=== PATIENT | male | born 1965 | race Caucasian/White ===

== ENCOUNTER 2019-07-03 07:12 | Outpatient (CLI) | payer OTHER, SELFPAY ==
[2019-07-03 07:20] VITALS: BMI 24.0
--- NOTE | 2019-07-03 07:25 | NMCV_ITS ---
NM raymond perf SPECT r/s* [id number] Christopher Vidales Age: 53 Gender: M : 1965 Exam Date: 07/03/2019 08:28 Ordering Phys: Miguel Dang MD ([email or web address]) Technologist: ALLIE Mitchell Exam Location: [facility] Indications: CHEST PAIN STRESS TEST Please see separate stress test report in [facility] for full findings IMAGE PROTOCOL Rest/Stress 1 Exercise Day Radiopharmaceutical Dose (mCi) Administration Site Administered by Rest: Tc-99m 11.0 IV ALLIE Mitchell Sestamibi Stress:Tc-99m 32.8 IV ALLIE Mitchell Sestamibi Rest: 03-Jul-2019 60 Discovery 630 Stress: 03-Jul-2019 30 Discovery 630 Radiopharmaceutical was injected at 86 % maximum heart rate. Images obtained in supine and prone position. SPECT RESULTS Technical Quality: Excellent Raw Data Analysis: Normal Image Corrections: No attenuation or motion correction applied Summed Stress Score: 0 Summed Rest Score: 0 Summed Difference Score: 0 PERFUSION FINDINGS Medium-size area of patchy decreased tracer uptake noted in basal to distal inferior wall on the rest images which improved over stress images suggestive of artifact. FUNCTIONAL RESULTS (calculated via Gated SPECT) Stress Image LV EF (%): 65 Stress EDV (mL):75 TID: 0.8 Stress ESV (mL):26 Rest Image LV EF (%): 65 FUNCTIONAL FINDINGS: There is normal left ventricular systolic function. IMPRESSIONS Perfusion scan is not suggestive of ischemia. EKG segment will be documented separately. Miguel Dang MD (Electronically Signed) Final Date: 03 July 2019 11:44 S
--- NOTE | 2019-07-03 07:25 | ECG_ITS ---
NAME OF STUDY: EXERCISE SESTAMIBI STRESS TEST INDICATION: [Chest Pain, Abnormal EKG, ASHD] Please note that this is a electrocardiogram portion of the Treadmill Sestamibi stress test. Perfusion imaging will be documented on a separate report. Data At baseline heart rate was noted to be 88 bpm. Baseline blood pressure noted to be 126/80 Patient exercised for on a 9 min 43 sec on standard Philippe protocol. Maximum Heart rate achieved was 149 which was 89% of 166. Then maximum blood pressure achieved was 168/89 mmHg. Max METS 13.5 Reason for, ending this test was achieving target heart rate. Patient did have sob symptoms during this procedure, which improved in recovery Electrocardiogram Baseline normal sinus rhythm with no ST changes. Exercise EKG at peak exercise reveals normal sinus tachycardia with nonspecific ST changes . No significant cardiac arrhythmias noted. Conclusions 1. Electrocardiographic component of this cardiac stress test is negative for cardiac ischemia 2. Normal Heart rate blood pressure response. Good exercise capacity for age 3. Please see separate report for report for the myocardial perfusion imaging Electronically Signed On 07-04-2019 12:09:01 CDT by Melyssa Dang [email or web address]
--- NOTE | 2019-07-03 09:30 | SUR.PREOP ---
Patient reports no pain or discomfort prior to the start of the procedure.
[2019-07-03 09:44] VITALS: BP 147/64; PULSE 99
== END 2019-07-03 07:13 | disposition home or self-care (01) ==
PROVIDERS: Family Provider Registered Nurse; PCP Registered Nurse; Visit Provider Internal Medicine Cardiovascular Disease
DX: R07.9 Chest pain, unspecified (principal); R94.31 Abnormal electrocardiogram [ECG] [EKG]
CPT/HCPCS: 78452; 93017; A9500

== ENCOUNTER → 2021-11-10 08:53 | Outpatient (BNVA) | payer OTHER, SELFPAY | PROVIDERS: Family Provider Registered Nurse; PCP Registered Nurse; Visit Provider Nurse Practitioner Family | DX: I10 Essential (primary) hypertension (principal); K21.9 Gastro-esophageal reflux disease without esophagitis | CPT/HCPCS: 80053; 85025 ==